=== PATIENT | female | born 1965 | race Caucasian/White ===

== ENCOUNTER 2016-06-17 15:54 | Emergency (ER) | payer MEDICAID | END 2016-06-17 17:03 | disposition home or self-care (01) | LOC: FASTR 15:54 | DX: S43.422A Sprain of left rotator cuff capsule, initial encounter (principal); X50.0XXA Overexertion from strenuous movement or load, initial encounter; S16.1XXA Strain of muscle, fascia and tendon at neck level, initial encounter ==